=== PATIENT | male | born 1945 | race Caucasian/White ===

== ENCOUNTER → 2018-09-15 | Outpatient (CLI) | payer BC ==
[2018-09-15 16:50] LABS: BLOOD UREA NITROGEN 19 mg/dl (7-20)
[2018-09-15 16:50] LABS: CREATININE 0.66 mg/dl (0.61-1.24)
== END | disposition home or self-care (01) ==
LOC: LAB 16:00
DX: R93.1 Abnormal findings on diagnostic imaging of heart and coronary circulation (principal); R06.02 Shortness of breath
CPT/HCPCS: 82565; 84520